=== PATIENT | female | born 1985 | race Caucasian/White ===

== ENCOUNTER 2017-03-29 09:51 | Emergency (ER) | payer SELFPAY ==
[2017-03-29] MEDS ORDERED: NORMAL SALINE 1000 ML 1,000 ML IV ONE (10:04)
[2017-03-29] MEDS ORDERED: ONDANSETRON HCL INJ/PF 4 MG/2 ML SDV IV ONE (10:04)
[2017-03-29] MEDS ORDERED: PROCHLORPERAZINE EDISYLATE INJ 10 MG/2 ML VIAL IV ONE (10:04)
--- NOTE | 2017-03-29 10:05 | ER Document Report ---
ED Medical Screen (RME) - General Chief Complaint: Headache Stated Complaint: DIZZINESS TRAVEL OUTSIDE OF THE [place] IN LAST 30 DAYS: No - HPI Patient complains to provider of: Headache Notes: 03/29/17 10:04 Patient coming in with a headache history of migraines unknown if this is similar to her migraines in the past states fever subjectively double ear pain concerned about ear infection dizziness ongoing for greater than a week denies any recent travel patient looks otherwise nontoxic upon evaluation - Related Data Allergies/Adverse Reactions: acetaminophen [From Vicodin] Allergy (Verified 03/29/17 09:58) Difficulty breathing hydrocodone [From Vicodin] Allergy (Verified 03/29/17 09:58) Difficulty breathing oxycodone [From Percocet] Allergy (Verified 03/29/17 09:58) Hives tramadol [From Ultram] Allergy (Verified 03/29/17 09:58) Hives Home Medications: Current Home Medications No Home Medications 03/29/17 [History] Past Medical History Renal/ Medical History: Denies: Hx Peritoneal Dialysis Review of Systems - Review of Systems Notes: Headache dizziness ear pain Physical Exam - Vital signs Vitals: Temp Pulse Resp BP Pulse Ox 97.7 F 91 18 133/87 H 99 03/29/17 09:54 03/29/17 09:54 03/29/17 09:54 03/29/17 09:54 03/29/17 09:54 - Cardiovascular Rhythm: Regular Heart sounds: Normal auscultation Course - Re-evaluation Re-evalutation: 03/29/17 10:05 I have greeted and performed a rapid initial assessment of this patient. A comprehensive ED assessment and evaluation of the patient, analysis of test results and completion of the medical decision making process will be conducted by additional ED providers. - Vital Signs Vital signs: Temp Pulse Resp BP Pulse Ox 97.7 F 91 18 133/87 H 99 03/29/17 09:54 03/29/17 09:54 03/29/17 09:54 03/29/17 09:54 03/29/17 09:54
--- NOTE | 2017-03-29 10:30 | ER Document Report ---
ED General - General Chief Complaint: Headache Stated Complaint: DIZZINESS Time Seen by Provider: 03/29/17 10:24 Mode of Arrival: Ambulatory Information source: Patient Notes: 32-year-old female with past medical history as recorded including fibromyalgia and "facial bone cancer" who presents today with 3 weeks of some intermittent dizziness described as vertigo with intermittent frontal headaches. She denies any nausea, vomiting, weakness or numbness. She states she did have some left- sided facial swelling without fevers, difficulty breathing or swallowing, that resolved spontaneously yesterday. She denies any facial or dental pain. 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 She did not receive any chemotherapy or radiation at that time. TRAVEL OUTSIDE OF THE [place] IN LAST 30 DAYS: No - HPI Onset: Other - See above Onset/Duration: Gradual Quality of pain: No pain Severity: Mild Pain Level: Denies Associated symptoms: Other - See above Exacerbated by: Denies Relieved by: Denies Similar symptoms previously: No Recently seen / treated by doctor: No - Related Data Allergies/Adverse Reactions: acetaminophen [From Vicodin] Allergy (Verified 03/29/17 09:58) Difficulty breathing hydrocodone [From Vicodin] Allergy (Verified 03/29/17 09:58) Difficulty breathing oxycodone [From Percocet] Allergy (Verified 03/29/17 09:58) Hives tramadol [From Ultram] Allergy (Verified 03/29/17 09:58) Hives Past Medical History - General Information source: Patient - Social History Smoking Status: Never Smoker Cigarette use (# per day): No Chew tobacco use (# tins/day): No Smoking Education Provided: No Frequency of alcohol use: Social Drug Abuse: None Family History: Reviewed & Not Pertinent Renal/ Medical History: Denies: Hx Peritoneal Dialysis Review of Systems - Review of Systems Constitutional: denies: Fever EENT: denies: Eye discharge, Nose discharge Respiratory: denies: Short of breath Gastrointestinal: denies: Vomiting Genitourinary: denies: Dysuria Musculoskeletal: denies: Leg swelling Skin: Other - no hives. denies: Rash Neurological/Psychological: Other - no slurred speech -: Yes All other systems reviewed and negative Physical Exam - Vital signs Vitals: Temp Pulse Resp BP Pulse Ox 97.7 F 91 18 133/87 H 99 03/29/17 09:54 03/29/17 09:54 03/29/17 09:54 03/29/17 09:54 03/29/17 09:54 Interpretation: Normal Notes: Reviewed vital signs and nursing note as charted by RN. CONSTITUTIONAL: Alert and oriented and responds appropriately to questions. Well -appearing; well-nourished HEAD: Normocephalic; atraumatic EYES: PERRL; Conjunctivae clear, sclerae non-icteric; using the ophthalmoscope I see a clear vessels to the retina region with a normal optic disc with clear margins ENT: Normal nose; no rhinorrhea; no obvious intraoral swelling, induration, or fluctuance. Patient has no obvious facial swelling or tenderness. Moist mucous membranes; pharynx without lesions noted NECK: Supple without meningismus; non-tender; no cervical lymphadenopathy, no masses CARD: Regular rate and rhythm; no murmurs, no clicks, no rubs, no gallops; symmetric distal pulses RESP: Normal chest excursion without splinting or tachypnea; breath sounds clear and equal bilaterally ABD/GI: Normal bowel sounds; non-distended; soft, non-tender BACK: The back appears normal and is non-tender to palpation, there is no CVA tenderness EXT: Normal ROM in all joints; non-tender to palpation; no cyanosis, no effusions, no edema SKIN: Normal color for age and race; warm; dry; good turgor; capillary refill < 2 seconds; no acute lesions noted NEURO: CN II through XII are intact. Patient has 5 out of 5 bilateral upper and lower extremity strength with sensation intact to light touch. Normal finger-nose and [id number] bilaterally. No nystagmus. PSYCH: The patient's mood and manner are appropriate. Grooming and personal hygiene are appropriate. Course - Re-evaluation Re-evalutation: 03/29/17 10:29 Given the history and physical examination, the patient's past history, I will obtain basic labs, CT scan of the head and face with IV contrast, and reassess. Patient currently has no focal neurological deficits. Vital signs are stable. I would like to evaluate for possible metastases or otherwise abnormal brain lesion. If the imaging is unremarkable, I will most likely start the patient on meclizine. Given the intermittent nature of the headaches without fevers, currently no blurry vision, click and reactive pupils bilaterally, soft globes, I believe subarachnoid hemorrhage, acute bacterial meningitis, and acute angle-closure glaucoma to be extremely unlikely. 03/29/17 10:44 EKG shows a heart of 82, normal sinus rhythm, normal axis, no obvious ST elevation or depression. 03/29/17 11:41 Ct head and Face with iv contrast has been read by radiologist Dr. Hazel. She has called and spoke with me directly. She states she sees some left lower mandible sclerotic changes c/w previous history. No other acute findings in face or brain. Pt still has no focal deficits. Normal cerebellar exam. Meds have improved symptoms. Labs unremarkable. Urine pending. 03/29/17 12:05 Ct head and face final reports as recorded. Urine shows no obvious infection and pt has no urinary complaints, fevers or abdominal pain. No change in exam. Pt's orthostatics as recorded. Pt will be discharged home with meclizine and strict return precautions and follow up with the PCP. - Vital Signs Vital signs: Temp Pulse Resp BP Pulse Ox 97.7 F 91 14 129/111 H 99 03/29/17 09:54 03/29/17 10:45 03/29/17 11:13 03/29/17 11:13 03/29/17 11:13 - Laboratory Result Diagrams: 03/29/17 10:15 03/29/17 10:15 Laboratory results interpreted by me: 03/29/17 03/29/17 03/29/17 10:15 10:15 11:34 Hgb 11.6 L MCV 73 L MCH 23.7 L RDW 15.2 H Glucose 114 H Urine Blood MODERATE H Ur Leukocyte Esterase MODERATE H Discharge - Discharge Clinical Impression: Dizziness Condition: Good Disposition: HOME, SELF-CARE Additional Instructions: Come back immediately with any worsening pain, change in location or quality of pain, facial swelling, difficulty breathing or swallowing, fevers, vomiting, belly pain or any other acute problems. Make sure you follow up with Primary doctor as we have discussed. Prescriptions: Meclizine HCl 25 mg PO TID PRN 5 Days PRN Reason:
[2017-03-29 10:41] LABS: ANION GAP 10 (5-19); BLOOD UREA NITROGEN 9 mg/dL (7-20); CALCIUM 9.1 mg/dL (8.4-10.2); CARBON DIOXIDE 28 mmol/L (22-30); CHLORIDE 104 mmol/L (98-107); CREATININE RESULT 0.79 mg/dL (0.52-1.25); GLUCOSE 114 mg/dL (75-110); POTASSIUM 4.4 mmol/L (3.6-5.0); SODIUM 142.4 mmol/L (137-145)
[2017-03-29 11:12] LABS: ABSOLUTE EOSINOPHILS # (AUTO) 0.2 10^3/uL (0.0-0.6); ABSOLUTE LYMPHOCYTES (AUTO) 1.7 10^3/uL (0.5-4.7); ABSOLUTE MONOCYTES (AUTO) 0.4 10^3/uL (0.1-1.4); ABSOLUTE NEUT (AUTO) 5.6 10^3/uL (1.7-8.2); BASOPHILS % (AUTO) 0.4 % (0-2); EOSINOPHILS % (AUTO) 2.8 % (0-6); HEMATOCRIT 36.1 % (36.0-47.0); HEMOGLOBIN 11.6 g/dL (12.0-15.5); HGB HCT DIFFERENCE -1.3; LYMPHOCYTES % (AUTO) 21.1 % (13-45); MEAN CORPUSCULAR HEMOGLOBIN 23.7 pg (27.0-33.4); MEAN CORPUSCULAR HGB CONC 32.3 g/dL (32.0-36.0); MEAN CORPUSCULAR VOLUME 73 fl (80-97); MONOCYTES % (AUTO) 5.4 % (3-13); RED BLOOD COUNT 4.92 10^6/uL (3.72-5.28); RED CELL DISTRIBUTION WIDTH 15.2 % (11.5-14.0); SEGMENTED NEUTROPHILS % (AUTO) 70.3 % (42-78)
--- NOTE | 2017-03-29 11:41 | RADIOLOGY REPORT (SQ) ---
EXAM DESCRIPTION: CT HEAD COMBO COMPLETED DATE/TIME: 03/29/2017 11:11 am REASON FOR STUDY: 2, h/o facial "bone cancer" with facial swell/piña COMPARISON: None. TECHNIQUE: Axial images acquired through the brain without and with intravenous contrast. Images re viewed with bone, brain and subdural windows. Images stored on PACS. All CT scanners at this facility use dose modulation, iterative reconstruction, and/or weight based d osing when appropriate to reduce radiation dose to as low as reasonably achievable (ALARA). [facility]: Dose Right [facility]: CareDose [facility]: Dose Right [facility]: Teradose 4D [facility]: [employer] CONTRAST TYPE AND DOSE: 50 mL of Isovue 370 RENAL FUNCTION: None required. The patient is less than 50 years old. RADIATION DOSE: Up-to-date CT equipment and radiation dose reduction techniques were employed. CTDIv ol: 30.4 - 64.6 mGy. DLP: 2955 mGy-cm.. LIMITATIONS: None. FINDINGS: VENTRICLES: Normal size and contour. CEREBRUM: No masses. No hemorrhage. No midline shift. Normal chapman/white matter differentiation. No ev idence for acute infarction. No enhancing lesions. CEREBELLUM: No masses. No hemorrhage. No alteration of density. No evidence for acute infarction. No enhancing lesions. EXTRA-AXIAL SPACES: No fluid collections. No enhancing lesions. ORBITS AND GLOBE: No intra- or extraconal masses. Normal contour of globe without masses. CALVARIUM: No fracture. PARANASAL SINUSES: No fluid or mucosal thickening. SOFT TISSUES: No mass or hematoma. OTHER: No other significant finding. IMPRESSION: NORMAL BRAIN CT WITHOUT AND WITH CONTRAST. TECHNICAL DOCUMENTATION: JOB ID: [id number] Quality ID # [id number]: Final reports with documentation of one or more dose reduction techniques (e.g., Au tomated exposure control, adjustment of the mA and/or kV according to patient size, use of iterative reconstruction technique) 2010 [employer]- All Rights Reserved
--- NOTE | 2017-03-29 11:46 | RADIOLOGY REPORT (SQ) ---
EXAM DESCRIPTION: CT FACIAL AREA WITH COMPLETED DATE/TIME: 03/29/2017 11:11 am REASON FOR STUDY: 2, h/o facial "bone cancer" with facial swell/piña COMPARISON: None. TECHNIQUE: Post contrast images through the facial bones and orbits windowed for bone and soft tissu e. Additional coronal and sagittal reconstructed images reviewed. All images stored on PACS. All CT scanners at this facility use dose modulation, iterative reconstruction, and/or weight based d osing when appropriate to reduce radiation dose to as low as reasonably achievable (ALARA). [facility]: Dose Right [facility]: CareDose [facility]: Dose Right [facility]: Teradose 4D [facility]: [employer] CONTRAST TYPE AND DOSE: contrast/concentration: Isovue 370.00 mg/ml; Total Contrast Delivered: 50.0 ml; Total Saline Delivered: 50.0 ml RENAL FUNCTION: None required. The patient is less than 50 years old. RADIATION DOSE: 30 mGy . LIMITATIONS: None. FINDINGS: In the left mandible, along the expected location of the left lower wisdom tooth, benign a ppearing bony sclerosis is present measuring about 14 mm AP by 12 mm craniocaudad by 13 mm transverse . No aggressive bony demineralization or expansion of the mandible in this area. This finding is be st shown on axial image 29, sagittal images 41 and 42, and coronal image 32. This is discrete from t he mental nerve canal. FACIAL BONES: No fracture or bone lesion. ORBITS: Intact. No fracture. Symmetric intact globes and retroorbital soft tissues. No abnormal ma sses or enhancement. PARANASAL SINUSES: Clear. No significant mucosal thickening, mass or fluid. No nasal polyps. Maxilla ry sinus outlets are patent. SOFT TISSUES: No mass or edema. No abnormal enhancement. Major salivary glands are unremarkable. INFERIOR BRAIN: Limited view. No acute findings. OTHER: No soft tissue abnormal enhancement. Normal enhancement of the carotid arteries and vertebral vessels in the field of view. This report was discussed with Dr. Smith. IMPRESSION: NO ACUTE FINDINGS. TECHNICAL DOCUMENTATION: JOB ID: [id number] Quality ID # [id number]: Final reports with documentation of one or more dose reduction techniques (e.g., Au tomated exposure control, adjustment of the mA and/or kV according to patient size, use of iterative reconstruction technique) 2010 [employer]- All Rights Reserved
[2017-03-29 11:49] LABS: APPEARANCE,URINE CLEAR; BILIRUBIN,URINE NEGATIVE (NEGATIVE); GLUCOSE, URINE NEGATIVE (NEGATIVE); KETONES,URINE NEGATIVE (NEGATIVE); LEUKOCYTE ESTERASE,URINE MODERATE (NEGATIVE); NITRITE,URINE NEGATIVE (NEGATIVE); PROTEIN,URINE NEGATIVE (NEGATIVE); URINE SPECIFIC GRAVITY 1.016; UROBILINOGEN,URINE NEGATIVE mg/dL (<2.0)
--- NOTE | 2017-03-29 13:01 | EKG REPORT ---
SEVERITY:- NORMAL ECG - SINUS RHYTHM : Confirmed by: Marco Antonio Lozada 29-Mar-2017 13:00:00
[2017-03-29 13:35] VITALS: BP 130/86
== END 2017-03-29 13:35 | disposition home or self-care (01) ==
LOC: ER 09:51
DX: R42 Dizziness and giddiness (principal); R51 Headache
CPT/HCPCS: 93005; 99284; 36415; 84702; 85025; 80048; 81001; 70470; 70487; 93010; J0780; J2405; J7030

== ENCOUNTER 2018-03-29 22:12 | Outpatient (CLI) | payer MEDICAID ==
[2018-03-29 23:07] LABS: AMORPHOUS SEDIMENT,URINE TRACE /HPF; APPEARANCE,URINE SLIGHTLY-CLOUDY; BILIRUBIN,URINE NEGATIVE (NEGATIVE); COLOR,URINE STRAW; GLUCOSE, URINE NEGATIVE (NEGATIVE); KETONES,URINE NEGATIVE (NEGATIVE); LEUKOCYTE ESTERASE,URINE LARGE (NEGATIVE); NITRITE,URINE NEGATIVE (NEGATIVE); PROTEIN,URINE NEGATIVE (NEGATIVE); URINE SPECIFIC GRAVITY 1.002; UROBILINOGEN,URINE NEGATIVE mg/dL (<2.0)
[2018-03-29 23:13] LABS: URINE AMPHETAMINES SCREEN NEGATIVE; URINE BARBITURATES SCREEN NEGATIVE; URINE BENZODIAZEPINES SCREEN NEGATIVE; URINE COCAINE SCREEN NEGATIVE; URINE MARIJUANA (THC) SCREEN NEGATIVE; URINE METHADONE SCREEN NEGATIVE; URINE PHENCYCLIDINE SCREEN NEGATIVE
== END 2018-03-29 23:45 | disposition home or self-care (01) ==
LOC: LC 22:12
PROVIDERS: ATTEND Obstetrics & Gynecology
PROC: 4A1HXCZ Monitoring of Products of Conception, Cardiac Rate, External Approach (ICD-10-PCS; principal; 2018-03-29)
DX: O36.8130 Decreased fetal movements, third trimester, not applicable or unspecified (principal); O36.8330 Maternal care for abnormalities of the fetal heart rate or rhythm, third trimester, not applicable or unspecified; O09.523 Supervision of elderly multigravida, third trimester; Z3A.34 34 weeks gestation of pregnancy
CPT/HCPCS: 80307; 81001

== ENCOUNTER 2018-04-11 13:27 | Outpatient (CLI) | payer MEDICAID ==
--- NOTE | 2018-04-11 13:39 | Non Stress Test Report ---
Non Stress Test Datetime Report Generated by CPN: 04/11/2018 13:39 DEMOGRAPHIC EGA NST: 34.1 INDICATION Indication for Study: Decreased Movement VITAL SIGNS Temperature - NST: 98.0 Pulse - NST: 92 RESP - NST: 16 NBPSYS NST: 122 NBPDIA NST: 77 URINE RESULTS Urine Protein, NST: Negative Urine Ketones - NST: Negative Urine Glucose - NST: Negative Urine Blood - NST: Negative MONITORING Monitor Explained: Monitor Explained; Test Explained; Patient Verbalized Understanding Time on Monitor: 03/29/2018 22:23 Time off Monitor: 03/29/2018 23:39 NST Duration: 76 NST INTERVENTIONS NST Interventions: PO Hydration Physician Notified NST: dr bravo-dick BABY A: [id number] BABY A Movement : Present Contraction Frequency : irregular FHR Baseline : 135 Accelerations : 15X15 Decelerations : Variable Variability : Moderate 6-25bpm NST Review: Meets Criteria for Reactive NST NST Review and Verified By : B. Ring RN NST Results: Reactive NST REPORT Report Trigger: Send Report
[2018-04-11 14:35] LABS: AMORPHOUS SEDIMENT,URINE TRACE /HPF; APPEARANCE,URINE CLOUDY; BILIRUBIN,URINE NEGATIVE (NEGATIVE); GLUCOSE, URINE NEGATIVE (NEGATIVE); KETONES,URINE NEGATIVE (NEGATIVE); LEUKOCYTE ESTERASE,URINE LARGE (NEGATIVE); NITRITE,URINE NEGATIVE (NEGATIVE); PROTEIN,URINE NEGATIVE (NEGATIVE); URINE SPECIFIC GRAVITY 1.026; UROBILINOGEN,URINE NEGATIVE mg/dL (<2.0)
[2018-04-11 14:40] LABS: COLOR,URINE YELLOW
[2018-04-11 14:46] LABS: URINE AMPHETAMINES SCREEN NEGATIVE; URINE BARBITURATES SCREEN NEGATIVE; URINE BENZODIAZEPINES SCREEN NEGATIVE; URINE COCAINE SCREEN NEGATIVE; URINE MARIJUANA (THC) SCREEN NEGATIVE; URINE METHADONE SCREEN NEGATIVE; URINE PHENCYCLIDINE SCREEN NEGATIVE
--- NOTE | 2018-04-11 15:05 | Non Stress Test Report ---
Non Stress Test Datetime Report Generated by CPN: 04/11/2018 15:05 DEMOGRAPHIC EGA NST: 36.0 INDICATION Indication for Study: Ordered by Provider Indication for Study (NST) Other: Labor check VITAL SIGNS Temperature - NST: 97.7 Pulse - NST: 91 RESP - NST: 16 NBPSYS NST: 133 NBPDIA NST: 84 MONITORING Monitor Explained: Monitor Explained; Test Explained; Patient Verbalized Understanding Time on Monitor: 04/11/2018 14:20 Time off Monitor: 04/11/2018 14:41 NST Duration: 21 NST INTERVENTIONS NST Interventions: PO Hydration; Reposition Patient Physician Notified NST: A. Barber, CNM BABY A Movement : Present Contraction Frequency : none FHR Baseline : 140 Accelerations : 15X15 Decelerations : None Variability : Moderate 6-25bpm NST Review: Meets Criteria for Reactive NST NST Review and Verified By : Nader Vanegas RN NST Results: Reactive NST REPORT Report Trigger: Send Report
== END 2018-04-11 14:45 | disposition home or self-care (01) ==
LOC: LC 13:27
PROVIDERS: ATTEND Obstetrics & Gynecology Gynecology
PROC: 4A1HXCZ Monitoring of Products of Conception, Cardiac Rate, External Approach (ICD-10-PCS; principal; 2018-04-11)
DX: O36.8130 Decreased fetal movements, third trimester, not applicable or unspecified (principal); O22.43 Hemorrhoids in pregnancy, third trimester; Z3A.36 36 weeks gestation of pregnancy
CPT/HCPCS: 59025; 80307; 81001

== ENCOUNTER → 2018-04-14 | Outpatient (CLI) | payer MEDICAID ==
[2018-04-14 11:07] LABS: HEMATOCRIT 36.3 % (36.0-47.0); HEMOGLOBIN 12.1 g/dL (12.0-15.5); MEAN CORPUSCULAR HEMOGLOBIN 26.1 pg (27.0-33.4); MEAN CORPUSCULAR HGB CONC 33.4 g/dL (32.0-36.0); MEAN CORPUSCULAR VOLUME 78 fl (80-97); PLATELET COUNT 237 10^3/uL (150-450); RED BLOOD COUNT 4.64 10^6/uL (3.72-5.28); RED CELL DISTRIBUTION WIDTH 14.7 % (11.5-14.0); WHITE BLOOD COUNT 10.8 10^3/uL (4.0-10.5)
[2018-04-14 11:32] LABS: UR PRO/CREAT RATIO RESULT 0.4 mg/mg (0.0-0.2); URINE CREATININE 29.7 mg/dL (16-327); URINE PROTEIN 11.5 mg/dL (<12)
[2018-04-14 11:36] LABS: ASPARTATE AMINO TRANSFERASE 14 U/L (14-36); URIC ACID 4.5 mg/dL (2.5-7.0)
== END ==
LOC: OD 10:30
PROVIDERS: ATTEND Registered Nurse Women's Health Care, Ambulatory
DX: O16.9 Unspecified maternal hypertension, unspecified trimester (principal); O99.89 Other specified diseases and conditions complicating pregnancy, childbirth and the puerperium; H53.9 Unspecified visual disturbance
CPT/HCPCS: 36415; 82565; 82570; 83615; 84156; 84450; 84550; 85027